=== PATIENT | female | born 1970 | race Caucasian/White ===

== ENCOUNTER 2025-01-29 07:10 | Outpatient (CLI) | payer BC, SELFPAY ==
--- NOTE | 2025-01-29 08:28 | W.ANESCHARGE ---
Anesthesia Charges Start Date/Time Anesthesia Start Date: 01/29/25 Anesthesia Start Time: 08:07 Stop Date/Time Anesthesia Stop Date: 01/29/25 Anesthesia Stop Time: 08:26 Coding CPT Codes CPT Codes: ZOES LWR INTST NDSC NOS - [id number] ([id number]) P2 - PATIENT W/MILD SYST DISEASE, QZ - CONTROL ROOM AGENT SVC W/O DIRECTOR DRUG SAFETY BY
--- NOTE | 2025-01-29 08:28 | P.ANES_ITS ---
Anesthesia Charges Start Date/Time Anesthesia Start Date: 01/29/25 Anesthesia Start Time: 08:07 Stop Date/Time Anesthesia Stop Date: 01/29/25 Anesthesia Stop Time: 08:26 Coding CPT Codes CPT Codes: ZOES LWR INTST NDSC NOS - [id number] ([id number]) P2 - PATIENT W/MILD SYST DISEASE, QZ - PAINT PREP TECHNICIAN SVC W/O PATIENT SERVICE REPRESENTATIVE BY
== END 2025-01-29 07:11 | disposition home or self-care (01) ==
LOC: OP CLINIC 07:13
PROVIDERS: PCP Student in an Organized Health Care Education/Training Program; Visit Provider Internal Medicine Gastroenterology
DX: Z12.11 Encounter for screening for malignant neoplasm of colon (principal); Z86.0101 Personal history of adenomatous and serrated colon polyps; D12.2 Benign neoplasm of ascending colon; K57.30 Diverticulosis of large intestine without perforation or abscess without bleeding
CPT/HCPCS: 00811; 00812; 45385; 88305; J2704

== ENCOUNTER 2025-02-24 21:05 | Outpatient (CLI) | payer BC, SELFPAY | END 2025-02-24 21:06 | disposition home or self-care (01) | PROVIDERS: PCP Student in an Organized Health Care Education/Training Program; Visit Provider Internal Medicine | DX: G47.33 Obstructive sleep apnea (adult) (pediatric) (principal); R09.02 Hypoxemia | CPT/HCPCS: 95811 ==